=== PATIENT | male | born 1980 | race Caucasian/White ===

== ENCOUNTER 2018-01-30 13:45 | Emergency (ER) | payer SELFPAY ==
[~2018-01-30] VITALS: Ht 180.3 cm; Wt 72.6 kg
--- OUTSIDE RECORDS SUMMARY | 2018-01-30 13:47 | XMS REPORT ---
Author Author [facility] Address Unknown Phone Unavailable Care Team Providers Care Drill Press Hand Name Role Phone DIXON ALCALA Unavailable Unavailable Payers Payer Name Policy Type Policy Number Effective Date Expiration Date Problems This patient has no known problems. Allergies, Adverse Reactions, Alerts Allergy Name Allergy Type Status Severity Reaction(s) Onset Date Inactive Date Treating Clinician Comments cyclobenzaprine HCl DA Active MO 2017-08-20 00:00:00 haloperidol DA Active U 2017-08-20 00:00:00 Medications This patient has no known medications. Results Test Description Test Time Test Comments Text Results Atomic Results Result Comments RAPID DRUG SCREEN, URINE 2016-09-29 13:54:00 BARBITURATE URINE (BEAKER) (test ovir=968) Negative Negative BENZODIAZEPINE SCREEN URINE (BEAKER) (test xppu=794) Negative Negative COCAINE (METAB.) SCREEN (BEAKER) (test dsia=0236) Negative Negative METHADONE SCREEN (BEAKER) (test bvmn=6090) Negative Negative OPIATE SCREEN URINE (BEAKER) (test haru=598) Positive Negative CANNABINOID SCREEN URINE (BEAKER) (test slpi=397) Positive Negative AMPH/METHAMPH SCREEN (BEAKER) (test vxmj=0768) Negative Negative PHENCYCLIDINE SCREEN URINE (BEAKER) (test oucv=620) Negative Negative DRUG CUTOFF CONC.Cocaine 300 ng/mL Cannabinoid 50 ng/mLBenzodiazepine 200 ng/mLBarbiturate 200 ng/mLPh encyclidine 25 ng/mLOpiate 300 ng/mLMethadone 300 ng/mLAmphetamine/ 1000 ng/mL MethamphetamineThis assay provides an unconfirmed qualitative test result for the clinical management of patients in emergency situations. Chain of custody not maintained. Some rvgf-ugl-nynnsod me dications, as well as adulterants, may cause inaccurate results. Clinical correl ation should be applied. A more comprehensive drug screen or confirmation of a d etected drug may be performed upon request.URINALYSIS W/ [id number] 13:42:00* Test Item Value Reference Range Comments COLOR (BEAKER) (test vbdp=452) Light Yellow CLARITY (BEAKER) (test rpjw=284) Clear SPECIFIC GRAVITY UA (BEAKER) (test nedh=778) 1.006 1.001-1.035 PH UA (BEAKER) (test xsnt=620) 8.0 5.0-8.0 PROTEIN UA (BEAKER) (test odld=755) Negative Negative GLUCOSE UA (BEAKER) (test fjrc=737) Negative Negative KETONES UA (BEAKER) (test nrcq=680) Negative Negative BILIRUBIN UA (BEAKER) (test rwtb=068) Negative Negative BLOOD UA (BEAKER) (test hasq=373) Negative Negative NITRITE UA (BEAKER) (test ehzm=758) Negative Negative LEUKOCYTE ESTERASE UA (BEAKER) (test dmqh=737) Negative Negative UROBILINOGEN UA (BEAKER) (test ksej=176) < mg/dL 0.2-1.0 RBC UA (BEAKER) (test nkvp=495) 0 /HPF WBC UA (BEAKER) (test juaw=902) 0 /HPF MUCUS (BEAKER) (test tyvd=1607) Rare SOURCE(BEAKER) (test cgtp=3202) SALICYLATE [id number] 13:03:00* Test Item Value Reference Range Comments SALICYLATE LEVEL (BEAKER) (test ssud=195) < mg/dL 20.0-30.0 ACETAMINOPHEN [id number] 12:57:00* Test Item Value Reference Range Comments ACETAMINOPHEN LEVEL (BEAKER) (test nlae=553) < ug/mL 10.0-30.0 COMPREHENSIVE METABOLIC [id number] 12:56:00* Test Item Value Reference Range Comments TOTAL PROTEIN (BEAKER) (test yvmv=857) 7.8 gm/dL 6.0-8.5 ALBUMIN (BEAKER) (test mdmu=8429) 4.3 g/dL 3.5-5.0 ALKALINE PHOSPHATASE (BEAKER) (test jcii=967) 73 U/L 30-115 BILIRUBIN TOTAL (BEAKER) (test stcy=417) 0.3 mg/dL 0.1-1.3 SODIUM (BEAKER) (test wagl=979) 140 meq/L 135-148 POTASSIUM (BEAKER) (test rsrc=295) 4.1 meq/L 3.5-5.5 CHLORIDE (BEAKER) (test xmoz=390) 104 meq/L 98-106 CO2 (BEAKER) (test ouxb=725) 24 meq/L 20-31 BLOOD UREA NITROGEN (BEAKER) (test dien=199) 8 mg/dL 10-26 CREATININE (BEAKER) (test gcmr=465) 0.99 mg/dL 0.50-1.20 GLUCOSE RANDOM (BEAKER) (test eypr=439) 98 mg/dL 70-110 CALCIUM (BEAKER) (test dspx=490) 10.1 mg/dL 8.5-10.5 AST (SGOT) (BEAKER) (test ozyp=959) 12 U/L 5-40 ALT (SGPT) (BEAKER) (test sscz=364) 8 U/L 6-50 EGFR (BEAKER) (test oise=5172) 85 mL/min/1.73 sq m ESTIMATED GFR IS NOT ACCURATE CREATININE CLEARANCE IN PREDICTING GLOMERULAR FILTRATION RATE. ESTIMATED GFR IS NOT APPLICABLE FOR DIALYSIS PATIENTS. CREATINE KINASE (CK)2016-09-29 12:56:00* Test Item Value Reference Range Comments CREATINE KINASE TOTAL (BEAKER) (test dzry=273) 40 U/L 30-300 [id number] 12:53:00* Test Item Value Reference Range Comments ETHANOL (BEAKER) (test ewdd=129) < mg/dL <=10 CBC W/PLT COUNT & AUTO [id number] 12:24:00* Test Item Value Reference Range Comments WHITE BLOOD CELL COUNT (BEAKER) (test mvdv=941) 5.8 K/ L 4.0-10.0 RED BLOOD CELL COUNT (BEAKER) (test iwvm=623) 5.16 M/ L 4.20-5.80 HEMOGLOBIN (BEAKER) (test kpzf=922) 15.3 GM/DL 13.0-16.8 HEMATOCRIT (BEAKER) (test kkyd=499) 46.0 % 40.0-50.0 MEAN CORPUSCULAR VOLUME (BEAKER) (test tatg=441) 89.3 fL 82.0-98.0 MEAN CORPUSCULAR HEMOGLOBIN (BEAKER) (test kuyw=608) 29.6 pg 27.0-33.0 MEAN CORPUSCULAR HEMOGLOBIN CONC (BEAKER) (test zgzw=530) 33.2 GM/DL 32.0-36.0 RED CELL DISTRIBUTION WIDTH (BEAKER) (test gwhd=213) 13.5 % 12.0-15.0 PLATELET COUNT (BEAKER) (test budk=535) 328 K/CU MM 150-430 MEAN PLATELET VOLUME (BEAKER) (test jife=600) 7.0 fL 6.5-10.5 NUCLEATED RED BLOOD CELLS (BEAKER) (test bheb=114) 0 /100 WBC 0-0 NEUTROPHILS RELATIVE PERCENT (BEAKER) (test fcgp=206) 76 % LYMPHOCYTES RELATIVE PERCENT (BEAKER) (test nhrl=005) 17 % MONOCYTES RELATIVE PERCENT (BEAKER) (test otvk=664) 4 % EOSINOPHILS RELATIVE PERCENT (BEAKER) (test hetk=946) 2 % BASOPHILS RELATIVE PERCENT (BEAKER) (test bats=392) 0 % NEUTROPHILS ABSOLUTE COUNT (BEAKER) (test jowv=653) 4.40 K/ L 1.80-8.00 LYMPHOCYTES ABSOLUTE COUNT (BEAKER) (test qucs=820) 1.00 K/ L 1.48-4.50 MONOCYTES ABSOLUTE COUNT (BEAKER) (test vptp=048) 0.20 K/ L 0.00-1.30 EOSINOPHILS ABSOLUTE COUNT (BEAKER) (test mzfc=275) 0.10 K/ L 0.00-0.50 BASOPHILS ABSOLUTE COUNT (BEAKER) (test swyk=818) 0.00 K/ L 0.00-0.20 TROPONIN [id number] 11:10:00* Test Item Value Reference Range Comments TROPONIN I (BEAKER) (test cgwd=105) 0.01 ng/mL 0.00-0.15 Troponin I (TnI) levels must be interpreted in the context of the presenting sym ptoms and the clinical findings. Elevated TnI levels indicate myocardial damage, but are not specific for ischemic heart disease. Elevated TnI levels are seen in patients with other cardiac conditions (including myocarditis and congestive h eart failure), and slight TnI elevations occur in patients with other conditions , including sepsis, renal failure, acidosis, acute neurological disease, and per sistent tachyarrhythmia.COMPREHENSIVE METABOLIC [id number] 10:56:00* Test Item Value Reference Range Comments TOTAL PROTEIN (BEAKER) (test ndjc=577) 6.9 gm/dL 6.0-8.5 ALBUMIN (BEAKER) (test uwth=5896) 4.1 g/dL 3.5-5.0 ALKALINE PHOSPHATASE (BEAKER) (test ukip=253) 68 U/L 30-115 BILIRUBIN TOTAL (BEAKER) (test fnyi=321) 0.2 mg/dL 0.1-1.3 SODIUM (BEAKER) (test ydlb=521) 144 meq/L 135-148 POTASSIUM (BEAKER) (test yztd=763) 3.4 meq/L 3.5-5.5 CHLORIDE (BEAKER) (test agja=660) 107 meq/L 98-106 CO2 (BEAKER) (test axmf=379) 24 meq/L 20-31 BLOOD UREA NITROGEN (BEAKER) (test qysw=510) 7 mg/dL 10-26 CREATININE (BEAKER) (test xotg=092) 0.83 mg/dL 0.50-1.20 GLUCOSE RANDOM (BEAKER) (test kcms=445) 101 mg/dL 70-110 CALCIUM (BEAKER) (test slxh=270) 9.5 mg/dL 8.5-10.5 AST (SGOT) (BEAKER) (test viip=684) 14 U/L 5-40 ALT (SGPT) (BEAKER) (test tzhk=070) 7 U/L 6-50 EGFR (BEAKER) (test rild=4562) 105 mL/min/1.73 sq m ESTIMATED GFR IS NOT ACCURATE CREATININE CLEARANCE IN PREDICTING GLOMERULAR FILTRATION RATE. ESTIMATED GFR IS NOT APPLICABLE FOR DIALYSIS PATIENTS. SALICYLATE [id number] 10:55:00* Test Item Value Reference Range Comments SALICYLATE LEVEL (BEAKER) (test ifex=887) < mg/dL 20.0-30.0 ACETAMINOPHEN [id number] 10:55:00* Test Item Value Reference Range Comments ACETAMINOPHEN LEVEL (BEAKER) (test khsg=126) < ug/mL 10.0-30.0 [id number] 10:52:00* Test Item Value Reference Range Comments LIPASE (BEAKER) (test iwdz=110) 36 U/L 8-78 [id number] 10:46:00* Test Item Value Reference Range Comments ETHANOL (BEAKER) (test rszj=505) < mg/dL <=10 RAPID DRUG SCREEN, [id number] 10:39:00* Test Item Value Reference Range Comments BARBITURATE URINE (BEAKER) (test sodu=511) Negative Negative BENZODIAZEPINE SCREEN URINE (BEAKER) (test team=538) Positive Negative COCAINE (METAB.) SCREEN (BEAKER) (test cqij=1400) Positive Negative METHADONE SCREEN (BEAKER) (test eios=5578) Negative Negative OPIATE SCREEN URINE (BEAKER) (test wrde=336) Negative Negative CANNABINOID SCREEN URINE (BEAKER) (test rdhy=537) Negative Negative AMPH/METHAMPH SCREEN (BEAKER) (test ahea=8963) Negative Negative PHENCYCLIDINE SCREEN URINE (BEAKER) (test mgex=759) Negative Negative DRUG CUTOFF CONC.Cocaine 300 ng/mL Cannabinoid 50 ng/mLBenzodiazepine 200 ng/mLBarbiturate 200 ng/mLPh encyclidine 25 ng/mLOpiate 300 ng/mLMethadone 300 ng/mLAmphetamine/ 1000 ng/mL MethamphetamineURINALYSIS W/ [id number] 10:24:00* Test Item Value Reference Range Comments COLOR (BEAKER) (test bjpw=736) Colorless CLARITY (BEAKER) (test xzhl=967) Clear SPECIFIC GRAVITY UA (BEAKER) (test undc=649) 1.001 1.001-1.035 PH UA (BEAKER) (test sjnu=968) 7.0 5.0-8.0 PROTEIN UA (BEAKER) (test hdhj=612) Negative Negative GLUCOSE UA (BEAKER) (test mlrc=264) Negative Negative KETONES UA (BEAKER) (test cwld=886) Negative Negative BILIRUBIN UA (BEAKER) (test ljes=907) Negative Negative BLOOD UA (BEAKER) (test czij=271) Negative Negative NITRITE UA (BEAKER) (test ygih=778) Negative Negative LEUKOCYTE ESTERASE UA (BEAKER) (test ifpd=032) Negative Negative UROBILINOGEN UA (BEAKER) (test dfrm=159) < mg/dL 0.2-1.0 RBC UA (BEAKER) (test daka=196) 0 /HPF WBC UA (BEAKER) (test uhxd=869) 0 /HPF SOURCE(BEAKER) (test vblc=9786) CBC W/PLT COUNT & AUTO [id number] 10:22:00* Test Item Value Reference Range Comments WHITE BLOOD CELL COUNT (BEAKER) (test lxcv=511) 6.4 K/ L 4.0-10.0 RED BLOOD CELL COUNT (BEAKER) (test lane=909) 4.28 M/ L 4.20-5.80 HEMOGLOBIN (BEAKER) (test zwqx=716) 12.9 GM/DL 13.0-16.8 HEMATOCRIT (BEAKER) (test gqdn=540) 38.6 % 40.0-50.0 MEAN CORPUSCULAR VOLUME (BEAKER) (test nkdj=901) 90.3 fL 82.0-98.0 MEAN CORPUSCULAR HEMOGLOBIN (BEAKER) (test zysb=579) 30.2 pg 27.0-33.0 MEAN CORPUSCULAR HEMOGLOBIN CONC (BEAKER) (test yhhj=980) 33.5 GM/DL 32.0-36.0 RED CELL DISTRIBUTION WIDTH (BEAKER) (test kfzs=587) 13.4 % 12.0-15.0 PLATELET COUNT (BEAKER) (test qkfg=383) 240 K/CU MM 150-430 MEAN PLATELET VOLUME (BEAKER) (test yale=097) 6.7 fL 6.5-10.5 NUCLEATED RED BLOOD CELLS (BEAKER) (test fprt=039) 0 /100 WBC 0-0 NEUTROPHILS RELATIVE PERCENT (BEAKER) (test vfem=630) 71 % LYMPHOCYTES RELATIVE PERCENT (BEAKER) (test zizq=245) 20 % MONOCYTES RELATIVE PERCENT (BEAKER) (test bafc=255) 7 % EOSINOPHILS RELATIVE PERCENT (BEAKER) (test lxbc=829) 3 % BASOPHILS RELATIVE PERCENT (BEAKER) (test fskd=840) 0 % NEUTROPHILS ABSOLUTE COUNT (BEAKER) (test peog=635) 4.50 K/ L 1.80-8.00 LYMPHOCYTES ABSOLUTE COUNT (BEAKER) (test xwer=829) 1.30 K/ L 1.48-4.50 MONOCYTES ABSOLUTE COUNT (BEAKER) (test sqjq=003) 0.40 K/ L 0.00-1.30 EOSINOPHILS ABSOLUTE COUNT (BEAKER) (test rzqx=051) 0.20 K/ L 0.00-0.50 BASOPHILS ABSOLUTE COUNT (BEAKER) (test wylw=262) 0.00 K/ L 0.00-0.20
--- OUTSIDE RECORDS SUMMARY | 2018-01-30 13:47 | XMS REPORT | Clinical Summary ---
Author Author [facility] Organization [facility] Address Unknown Phone Unavailable Care Team Providers Care Electroformer Name Role Phone Arnulfo Hays MD PCP Allergies Comments Active Allergy Reactions Severity Noted Date Cyclobenzaprine Swelling 09/13/2012 "Swollen lips and locked jaw" Haloperidol 08/04/2013 Medications End Date Status Medication Sig Dispensed Refills Start Date Active HYDROcodone-acetaminophen Take 1 tablet 0 (NORCO 10-325) 10-325 mg by mouth per tablet every 6 (six) hours as needed for Pain. Active Problems Problem Noted Date Alcohol withdrawal seizure, with unspecified complication 09/29/2016 Suicide attempt 03/02/2016 Alcohol withdrawal seizure, uncomplicated 03/02/2016 Alcohol withdrawal 08/04/2013 Alcohol withdrawal 02/24/2013 Social History Date Tobacco Use Types Packs/Day Years Used Former Smoker 1 20 Alcohol Use Drinks/Week oz/Week Comments No Former Sex Assigned at Date Recorded Not on file Industry Job Start Date Occupation Not on file Not on file Not on file Travel End Travel History Travel Start No recent travel history available. Last Filed Vital Signs Not on file Plan of Treatment Not on file Results Not on fileafter 01/29/2017 Insurance Payer Benefit Subscriber ID Type Phone Address Plan / Group MEDICAID MEDICAID xxxxxxxxx [place] [id number] [id number] (Work) Advance Directives For more information, please contact: [facility] [address] [place] [address] Date Inactivated Comments Code Status Date Activated 07/02/2016 11:09 AM Full Code 07/01/2016 2:30 PM This code status was determined by: Patient 03/03/2016 7:05 PM Full Code 03/02/2016 4:19 AM This code status was determined by: Patient 10/06/2013 3:27 PM Full Code 10/04/2013 5:12 PM This code status was determined by: Patient 02/26/2013 6:23 PM All possible means of support, including: cardiac massage, mechanical ventilation, and defibrillation will be used to support life. Code ONE 02/24/2013 2:38 PM
--- OUTSIDE RECORDS SUMMARY | 2018-01-30 13:47 | XMS REPORT | Clinical Summary ---
Author Author [employer] [facility] [employer] Address Unknown Phone Unavailable Care Team Providers [employer] Name Role Phone Asked, No Pcp PCP Unavailable Allergies Active Allergy Reactions Severity Noted Date Comments Haloperidol Other (See Comments) 08/31/2016 JESSICA Current Medications Prescription Sig. Disp. Refills Start End Date Status Date sulfamethoxazole-trimetho Take 1 tablet by mouth 2 20 tablet 0 06/13/19 06/23/19 prim (BACTRIM DS) 800-160 (two) times a day for 10 18 18 mg per tablet days. acetaminophen-codeine Take 1 tablet by mouth 20 tablet 0 06/13/19 06/17/19 (TYLENOL WITH CODEINE #3) every 4 (four) hours as 18 18 300-30 mg per tablet needed for moderate pain for up to 20 doses. Active Problems Problem Noted Date Alcohol withdrawal syndrome (HCC) 12/19/2017 Drug intoxication without complication (HCC) 12/18/2017 Alcohol withdrawal syndrome with complication (HCC) 10/01/2017 Cellulitis of hand 06/08/2017 Dental implant pain 08/31/2016 Encounters Date Type Specialty Care Team Description 12/17/2017 [facility] Eduin Cunningham MD Drug intoxication without - Encounter Gregory Marques MD complication (Primary 12/19/2017 Dx); Alcohol withdrawal syndrome, with delirium; Psychosis, unspecified psychosis type; Alcohol withdrawal syndrome with complication; Cellulitis of hand 10/01/2017 [facility] Frank Eason Alcohol withdrawal - Encounter syndrome with 10/03/2017 Leoncio Gastelum MD complication (Primary [place], Sanjay Gould MD Dx); Drug abuse; Suicidal ideations 06/08/2017 [facility] Federico Foster MD Cellulitis of hand - Encounter Rene Villarreal MD (Primary Dx) 06/12/2017 Diane Patino MD 06/08/2017 Procedure Pass General Internal Medicine after 01/29/2017 Immunizations Name Dates Previously Given Next Due Tdap 06/09/2017 Social History Tobacco Use Types Packs/Day Years Used Date Current Every Day Smoker Cigarettes 2 22 Smokeless Tobacco: Former User Tobacco Cessation: Ready to Quit: No; Counseling Given: No Alcohol Use Drinks/Week oz/Week Comments Yes MCKENZIE DAILY Sex Assigned at Date Recorded Not on file Last Filed Vital Signs Vital Sign Reading Time Taken Blood Pressure 105/70 12/19/2017 7:20 AM CDT Pulse 85 12/19/2017 7:20 AM CDT Temperature 36.3 C (97.3 F) 12/19/2017 7:20 AM CDT Respiratory Rate 14 12/19/2017 7:20 AM CDT Oxygen Saturation 99% 12/19/2017 7:20 AM CDT Inhaled Oxygen - - Concentration Weight 72.6 kg (160 lb) 12/17/2017 10:47 PM CDT Height 180.3 cm (5' 11") 12/17/2017 10:47 PM CDT Body Mass Index 22.32 12/17/2017 10:47 PM CDT Plan of Treatment Health Maintenance Due Date Last Done Comments INFLUENZA VACCINE 11/02/2017 Procedures Procedure Name Priority Date/Time Associated Diagnosis Comments ESTIMATED GFR Routine 12/19/2017 Results for this 3:50 AM CDT procedure are in the results section. BASIC METABOLIC PANEL Routine 12/19/2017 Results for this 3:50 AM CDT procedure are in the results section. HEPATIC FUNCTION PANEL Routine 12/19/2017 Results for this 3:50 AM CDT procedure are in the results section. HC COMPLETE BLD COUNT Routine 12/19/2017 Results for this W/AUTO DIFF 3:50 AM CDT procedure are in the results section. VENOUS BLOOD GAS STAT 12/18/2017 Results for this 6:05 AM CDT procedure are in the results section. LACTIC ACID LEVEL, SEPSIS Timed 12/18/2017 Results for this - NOW AND REPEAT 2X EVERY 5:55 AM CDT procedure are in the [address] ABDOMEN PELVIS W STAT 12/18/2017 Results for this CONTRAST 5:12 AM CDT procedure are in the results section. LACTIC ACID LEVEL, SEPSIS Timed 12/18/2017 Results for this - NOW AND REPEAT 2X EVERY 12:53 AM CDT procedure are in the 3 HOURS results section. SALICYLATE LEVEL STAT 12/17/2017 Results for this 11:48 PM CDT procedure are in the results section. ALCOHOL LEVEL, BLOOD STAT 12/17/2017 Results for this 11:48 PM CDT procedure are in the results section. THYROID STIMULATING STAT 12/17/2017 Results for this HORMONE 11:48 PM CDT procedure are in the results section. T4, FREE STAT 12/17/2017 Results for this 11:48 PM CDT procedure are in the results section. ESTIMATED GFR STAT 12/17/2017 Results for this 11:48 PM CDT procedure are in the results section. ACETAMINOPHEN LEVEL STAT 12/17/2017 Results for this 11:48 PM CDT procedure are in the results section. LIPASE LEVEL STAT 12/17/2017 Results for this 11:48 PM CDT procedure are in the results section. PHOSPHORUS LEVEL STAT 12/17/2017 Results for this 11:48 PM CDT procedure are in the results section. MAGNESIUM LEVEL STAT 12/17/2017 Results for this 11:48 PM CDT procedure are in the results section. CREATINE KINASE, TOTAL STAT 12/17/2017 Results for this (CPK) 11:48 PM CDT procedure are in the results section. COMPREHENSIVE METABOLIC STAT 12/17/2017 Results for this PANEL 11:48 PM CDT procedure are in the results section. HC COMPLETE BLD COUNT STAT 12/17/2017 Results for this W/AUTO DIFF 11:48 PM CDT procedure are in the results section. BLOOD CULTURE, AEROBIC & Routine 12/17/2017 Results for this ANAEROBIC 11:48 PM CDT procedure are in the results section. BLOOD CULTURE, AEROBIC & Routine 12/17/2017 Results for this ANAEROBIC 11:26 PM CDT procedure are in the results section. ZZESTIMATED GFR Routine 10/02/2017 Results for this 5:16 AM CDT procedure are in the results section. COMPREHENSIVE METABOLIC Routine 10/02/2017 Results for this PANEL 5:16 AM CDT procedure are in the results section. HC COMPLETE BLD COUNT Routine 10/02/2017 Results for this W/AUTO DIFF 5:16 AM CDT procedure are in the results section. URINALYSIS, AUTOMATED STAT 10/01/2017 Results for this WITH MICROSCOPY 7:51 PM CDT procedure are in the results section. URINE DRUGS OF ABUSE STAT 10/01/2017 Results for this SCREEN 7:51 PM CDT procedure are in the results section. ZZESTIMATED GFR STAT 10/01/2017 Results for this 6:55 PM CDT procedure are in the results section. COMPREHENSIVE METABOLIC STAT 10/01/2017 Results for this PANEL 6:55 PM CDT procedure are in the results section. ACETAMINOPHEN LEVEL STAT 10/01/2017 Results for this 6:55 PM CDT procedure are in the results section. HC COMPLETE BLD COUNT STAT 10/01/2017 Results for this W/AUTO DIFF 6:55 PM CDT procedure are in the results section. SALICYLATE LEVEL STAT 10/01/2017 Results for this 6:55 PM CDT procedure are in the results section. ALCOHOL LEVEL, BLOOD STAT 10/01/2017 Results for this 6:55 PM CDT procedure are in the results section. [place] CRITICAL C[facility], E/M Routine 10/01/2017 Results for this 30-74 MINUTES 6:41 PM CDT procedure are in the results section. ZZESTIMATED GFR Routine 06/11/2017 Results for this 6:33 AM [employer] procedure are in the results section. CREATININE LEVEL Routine 06/11/2017 Results for this 6:33 AM [employer] procedure are in the results section. VANCOMYCIN LEVEL, TROUGH Timed 06/10/2017 Results for this 11:46 AM [employer] procedure are in the results section. ZZESTIMATED GFR Routine 06/10/2017 Results for this 4:40 AM [employer] procedure are in the results section. BASIC METABOLIC PANEL Routine 06/10/2017 Results for this 4:40 AM [employer] procedure are in the results section. CBC WITH PLATELET AND Routine 06/10/2017 Results for this DIFFERENTIAL 4:40 AM [employer] procedure are in the results section. MRI UPPER EXTREMITY W WO Routine 06/09/2017 Results for this CONTRAST RIGHT 10:28 AM [employer] procedure are in the results section. ZZESTIMATED GFR Routine 06/09/2017 Results for this 5:00 AM [employer] procedure are in the results section. BASIC METABOLIC PANEL Routine 06/09/2017 Results for this 5:00 AM [employer] procedure are in the results section. CBC WITH PLATELET AND Routine 06/09/2017 Results for this DIFFERENTIAL 5:00 AM [employer] procedure are in the results section. LACTIC ACID LEVEL, SEPSIS Timed 06/09/2017 Results for this - NOW AND REPEAT 2X EVERY 5:00 AM [employer] procedure are in the 3 HOURS results section. URINE DRUGS OF ABUSE Routine 06/09/2017 Results for this SCREEN 12:58 AM [employer] procedure are in the results section. HC COMPLETE BLD COUNT STAT 06/08/2017 Results for this W/AUTO DIFF 2:30 PM [employer] procedure are in the results section. LACTIC ACID LEVEL, SEPSIS Timed 06/08/2017 Results for this - NOW AND REPEAT 2X EVERY 2:30 PM [employer] procedure are in the 3 HOURS results section. BLOOD CULTURE, AEROBIC & Routine 06/08/2017 Results for this ANAEROBIC 1:19 PM [employer] procedure are in the results section. ZZESTIMATED GFR STAT 06/08/2017 Results for this 12:10 PM [employer] procedure are in the results section. LACTIC ACID LEVEL, SEPSIS STAT 06/08/2017 Results for this - NOW AND REPEAT 2X EVERY 12:10 PM [employer] procedure are in the 3 HOURS results section. BASIC METABOLIC PANEL STAT 06/08/2017 Results for this 12:10 PM [employer] procedure are in the results section. BLOOD CULTURE, AEROBIC & Routine 06/08/2017 Results for this ANAEROBIC 11:35 AM [employer] procedure are in the results section. US DUPLEX VENOUS UPPER STAT 06/08/2017 Results for this EXTREMITY RIGHT 11:30 AM [employer] procedure are in the results section. XR WRIST 3+ VW RIGHT STAT 06/08/2017 Results for this 11:00 AM [employer] procedure are in the results section. after 01/29/2017 Results * Estimated GFR (12/19/2017 3:50 AM) Only the most recent of 2 results within the time period is included. Estimated GFR >=90 mL/min/1.73 m2 [facility] DEPARTMENT OF Comment: PATHOLOGY AND [employer] GENOMIC MEDICINE rpretation G1 >=90 Normal or high G2 60-89Mildly decreased [id number] Mildly to moderately decreased [id number] Moderately to severely decreased G4 15-29Severely decreased G5 <15Kidney failure The eGFR was calculated using the Chronic Kidney Disease Epidemiology Collaboration (CKD-EPI) equation. Interpretation is based on recommendations of the National Kidney Foundation-Kidney Disease Outcomes Quality Initiative (NKF-KDOQI) published in 2014. Specimen Plasma specimen Performing Organization Address City/State/Zipcode Phone Number [place] [phone] [facility] [address] [place] [address] PATHOLOGY AND GENOMIC MEDICINE * CBC with platelet and differential (12/19/2017 3:50 AM) Only the most recent of 7 results within the time period is included. WBC 6.4 4.5 - 11.0 k/uL [facility] DEPARTMENT OF PATHOLOGY AND GENOMIC MEDICINE RBC 4.47 4.40 - 6.00 M/uL [facility] DEPARTMENT OF PATHOLOGY AND GENOMIC MEDICINE HGB 12.7 (L) 14.0 - 18.0 g/dL [facility] DEPARTMENT OF PATHOLOGY AND GENOMIC MEDICINE HCT 39.0 (L) 41.0 - 51.0 % [facility] DEPARTMENT OF PATHOLOGY AND GENOMIC MEDICINE MCV 87.2 82.0 - 100.0 fL [facility] DEPARTMENT OF PATHOLOGY AND GENOMIC MEDICINE MCH 28.4 27.0 - 34.0 pg [facility] DEPARTMENT OF PATHOLOGY AND GENOMIC MEDICINE MCHC 32.6 31.0 - 37.0 g/dL [facility] DEPARTMENT OF PATHOLOGY AND GENOMIC MEDICINE RDW - SD 41.1 37.0 - 55.0 fL [facility] DEPARTMENT OF PATHOLOGY AND GENOMIC MEDICINE MPV 9.1 8.8 - 13.2 fL [facility] DEPARTMENT OF PATHOLOGY AND GENOMIC MEDICINE Platelet count 228 150 - 400 K/uL [facility] DEPARTMENT OF PATHOLOGY AND GENOMIC MEDICINE Nucleated RBC 0.00 /100 WBC [facility] DEPARTMENT OF PATHOLOGY AND GENOMIC MEDICINE Neutrophils 70.8 (H) 39.0 - 69.0 % [facility] DEPARTMENT OF PATHOLOGY AND GENOMIC MEDICINE Lymphocytes 16.5 (L) 25.0 - 45.0 % [facility] DEPARTMENT OF PATHOLOGY AND GENOMIC MEDICINE Monocytes 7.5 0.0 - 10.0 % [facility] DEPARTMENT OF PATHOLOGY AND GENOMIC MEDICINE Eosinophils 4.7 0.0 - 5.0 % [facility] DEPARTMENT OF PATHOLOGY AND GENOMIC MEDICINE Basophils 0.3 0.0 - 1.0 % [facility] DEPARTMENT OF PATHOLOGY AND GENOMIC MEDICINE Immature granulocytes 0.2Comment: "Immature 0.0 - 1.0 % [facility] DEPARTMENT OF granulocytes" (promyelocytes, PATHOLOGY AND myelocytes, metamyelocytes) [facility] Specimen Blood Performing Organization Address City/State/Zipcode Phone Number [facility] [address] [facility] [place] [address] PATHOLOGY AND [employer] MEDICINE * Hepatic function panel (12/19/2017 3:50 AM) Albumin 3.9 3.5 - 5.0 g/dL [facility] DEPARTMENT OF PATHOLOGY AND GENOMIC MEDICINE Total bilirubin 0.3 0.2 - 1.2 mg/dL [facility] DEPARTMENT OF PATHOLOGY AND GENOMIC MEDICINE Bilirubin direct <0.2 0.0 - 0.4 mg/dL [facility] DEPARTMENT OF PATHOLOGY AND GENOMIC MEDICINE Alkaline phosphatase 73 30 - 115 U/L [facility] DEPARTMENT OF PATHOLOGY AND GENOMIC MEDICINE Protein 6.6 6.3 - 8.2 g/dL [facility] DEPARTMENT OF PATHOLOGY AND GENOMIC MEDICINE ALT 8 (L) 10 - 55 U/L [facility] DEPARTMENT OF PATHOLOGY AND GENOMIC MEDICINE AST 17 15 - 46 U/L [facility] DEPARTMENT OF PATHOLOGY AND GENOMIC MEDICINE Specimen Plasma specimen Performing Organization Address [facility]/[place] [address] PATHOLOGY AND [employer] * Basic metabolic panel (12/19/2017 3:50 AM) Only the most recent of 4 results within the time period is included. Sodium 139 135 - 148 mEq/L [facility] DEPARTMENT OF PATHOLOGY AND GENOMIC MEDICINE Potassium 4.2 3.5 - 5.0 mEq/L [facility] DEPARTMENT OF PATHOLOGY AND GENOMIC MEDICINE Chloride 102 99 - 109 mEq/L [facility] DEPARTMENT OF PATHOLOGY AND GENOMIC MEDICINE CO2 27 24 - 31 mEq/L [facility] OF PATHOLOGY AND GENOMIC MEDICINE Anion gap 10@ANIO 7 - 15 mEq/L [facility] DEPARTMENT OF PATHOLOGY AND GENOMIC MEDICINE BUN 9 8 - 24 mg/dL [facility] DEPARTMENT OF PATHOLOGY AND GENOMIC MEDICINE Creatinine 1.00 0.70 - 1.20 mg/dL [facility] DEPARTMENT PATHOLOGY AND GENOMIC MEDICINE Glucose 149 (H) 65 - 99 mg/dL [facility] DEPARTMENT OF PATHOLOGY AND GENOMIC MEDICINE Calcium 9.0 8.6 - 10.6 mg/dL [facility] PATHOLOGY AND GENOMIC MEDICINE Specimen Plasma specimen Performing Organization Address [facility]/[place] [address] PATHOLOGY [facility] [employer] * Venous blood gas (12/18/2017 6:05 AM) pH, venous 7.33 7.32 - 7.42 [facility] DEPARTMENT OF PATHOLOGY AND GENOMIC MEDICINE pCO2, venous 55 (H) 45 - 51 mmHg [facility] DEPARTMENT OF PATHOLOGY AND GENOMIC MEDICINE pO2, venous 32 25 - 40 mmHg [facility] DEPARTMENT OF PATHOLOGY AND GENOMIC MEDICINE Base excess, venous 2 -2 - 2 mEq/L [facility] DEPARTMENT OF PATHOLOGY AND GENOMIC MEDICINE O2 saturation, venous 53 40 - 70 % [facility] DEPARTMENT OF PATHOLOGY AND GENOMIC MEDICINE Bicarbonate, venous 28.0 21.0 - 28.0 [facility] DEPARTMENT OF PATHOLOGY AND GENOMIC MEDICINE Specimen Blood Performing Organization Address City/[facility]/Zipcode Phone Number [facility] [place] [place] [address] [facility]. [address] [place] [address] PATHOLOGY AND GENOMIC MEDICINE * Lactic acid level, SEPSIS - Now and repeat 2x every 3 hours (12/18/2017 5:55 AM) Only the most recent of 5 results within the time period is included. Lactic acid 0.6 0.5 - 2.2 mmol/L [facility] DEPARTMENT OF PATHOLOGY AND GENOMIC MEDICINE Specimen Blood Performing Organization Address [facility]/Zipcode Phone Number [address] [place] [address] PATHOLOGY AND GENOMIC MEDICINE * CT Abdomen Pelvis W Contrast (12/18/2017 5:12 AM) Narrative Performed At Examination:CT ABDOMEN PELVIS W CONTRAST HM RADIANT Clinical History: epigastric pain Comparison: None. Findings: CT scans are performed using radiation dose reduction techniques.Technical factors are evaluated and adjusted to ensure appropriate moderation of exposure.Automated dose management technology is applied to adjust radiation exposure while achieving a diagnostic quality image. CT scan of the abdomen and pelvis was performed after intravenous contrast. The liver, spleen, pancreas, and adrenal glands are unremarkable. Gallbladder is contracted but unremarkable. There is a left intrarenal calculus measuring 2 mm. Right renal cyst is noted measuring 3.6 cm. No hydronephrosis is seen. Nonspecific but nondilated fluid-filled small bowel are noted. No bowel thickening or fat stranding is seen. Moderate fecal material seen throughout the colon. No bowel dilatation is seen. No free air or fluid is seen. Urinary bladder is unremarkable. The visualized lung bases show some mild right base atelectasis. IMPRESSION: 1. Moderate fecal material throughout the colon but no evidence for bowel obstruction. 2. Nonspecific but nondilated fluid-filled small bowel may be related to adynamic ileus. 3. Left nonobstructing intrarenal calculus. [facility]-[id number] Procedure Note Hm Interface, Radiology Results Incoming - 12/18/2017 5:42 AM CDT Examination: CT ABDOMEN PELVIS W CONTRAST Clinical History: epigastric pain Comparison: None. Findings: CT scans are performed using radiation dose reduction techniques. Technical factors are evaluated and adjusted to ensure appropriate moderation of exposure. Automated dose management technology is applied to adjust radiation exposure while achieving a diagnostic quality image. CT scan of the abdomen and pelvis was performed after intravenous contrast. The liver, spleen, pancreas, and adrenal glands are unremarkable. Gallbladder is contracted but unremarkable. There is a left intrarenal calculus measuring 2 mm. Right renal cyst is noted measuring 3.6 cm. No hydronephrosis is seen. Nonspecific but nondilated fluid-filled small bowel are noted. No bowel thickening or fat stranding is seen. Moderate fecal material seen throughout the colon. No bowel dilatation is seen. No free air or fluid is seen. Urinary bladder is unremarkable. The visualized lung bases show some mild right base atelectasis. IMPRESSION: 1. Moderate fecal material throughout the colon but no evidence for bowel obstruction. 2. Nonspecific but nondilated fluid-filled small bowel may be related to adynamic ileus. 3. Left nonobstructing intrarenal calculus. [facility]-[id number] Performing Organization Address [facility]/[place] [address] * Blood culture, aerobic & anaerobic (12/17/2017 11:48 PM) Only the most recent of 4 results within the time period is included. Blood culture isolate No growth after 5 days of [facility] DEPARTMENT OF incubation. PATHOLOGY AND Comment: GENOMIC MEDICINE Specimen Information Specimen Source: Blood Specimen Site: Upper arm, left Specimen Blood - Upper arm, left Performing Organization Address [facility]/[employer] Phone Number [facility] DEPARTMENT OF [address] [place] [address] PATHOLOGY AND GENOMIC MEDICINE * Thyroid stimulating hormone (12/17/2017 11:48 PM) TSH 1.79 0.55 - 4.78 uIU/mL [facility] DEPARTMENT OF PATHOLOGY AND [facility] MEDICINE Specimen Plasma specimen Performing Organization Address [facility]/[place] Phone Number [address] [place] [address] PATHOLOGY AND GENOMIC MEDICINE * T4, free (12/17/2017 11:48 PM) T4, free 1.4 0.8 - 1.8 ng/dL [facility] DEPARTMENT OF PATHOLOGY AND GENOMIC MEDICINE Specimen Plasma specimen Performing Organization Address [facility]/[place] Phone Number [address] [place] [address] PATHOLOGY AND GENOMIC MEDICINE * Phosphorus level (12/17/2017 11:48 PM) Phosphorus 2.6 2.5 - 4.8 mg/dL [facility] DEPARTMENT OF PATHOLOGY AND GENOMIC MEDICINE Specimen Plasma specimen Performing Organization Address [facility] [place] [address] PATHOLOGY AND GENOMIC MEDICINE * Magnesium level (12/17/2017 11:48 PM) Magnesium 2.1 1.7 - 2.4 mg/dL [facility] DEPARTMENT OF PATHOLOGY AND GENOMIC MEDICINE Specimen Plasma specimen Performing Organization Address [facility] [place] [address] PATHOLOGY AND GENOMIC MEDICINE * Lipase level (12/17/2017 11:48 PM) Lipase 11 (L) 23 - 300 U/L [facility] OF PATHOLOGY AND GENOMIC MEDICINE Specimen Plasma specimen Performing Organization [facility] [place] [address] PATHOLOGY AND GENOMIC MEDICINE * Creatine kinase, total (CPK) (12/17/2017 11:48 PM) Creatine kinase 203 (H) 35 - 200 U/L [facility] OF PATHOLOGY AND GENOMIC MEDICINE Specimen Plasma specimen Performing Organization [facility] [place] [address] PATHOLOGY AND GENOMIC MEDICINE * Alcohol level, blood (12/17/2017 11:48 PM) Only the most recent of 2 results within the time period is included. Alcohol None Detected mg/dl [facility] DEPARTMENT OF PATHOLOGY AND GENOMIC MEDICINE Alcohol percent None Detected 0.00 - 0.08 % [facility] DEPARTMENT OF Comment: PATHOLOGY AND Normal GENOMIC MEDICINE None Detected Legal Intoxication in [place]80 mg/dL (0.08%) - Whole Blood Toxic Concentration 200 mg/dL (0.2%) Potentially Fatal3 50 - 500 mg/dL (0.35 - 0.5%) Specimen Plasma specimen Performing Organization [facility] [place] [address] PATHOLOGY AND GENOMIC MEDICINE * Acetaminophen level (12/17/2017 11:48 PM) Only the most recent of 2 results within the time period is included. Acetaminophen level <15.0 10.0 - 30.0 ug/mL [facility] DEPARTMENT OF PATHOLOGY AND GENOMIC MEDICINE Specimen Plasma specimen Performing Organization [facility]/[employer] Phone Number [address] [place] [address] PATHOLOGY AND GENOMIC MEDICINE * Salicylate level (12/17/2017 11:48 PM) Only the most recent of 2 results within the time period is included. Salicylate <0.3 (L) 5.0 - 30.0 mg/dL [facility] DEPARTMENT OF Comment: PATHOLOGY AND Therapeutic Range: GENOMIC MEDICINE 5 - 30 mg/dL Specimen Plasma specimen Performing Organization Address City/[facility]/[employer] Phone Number [address] [place] [address] PATHOLOGY AND GENOMIC MEDICINE * Comprehensive metabolic panel (12/17/2017 11:48 PM) Only the most recent of 3 results within the time period is included. Sodium 137 135 - 148 mEq/L [facility] DEPARTMENT OF PATHOLOGY AND GENOMIC MEDICINE Potassium 4.0 3.5 - 5.0 mEq/L [facility] DEPARTMENT OF PATHOLOGY AND GENOMIC MEDICINE Chloride 96 (L) 99 - 109 mEq/L [facility] DEPARTMENT OF PATHOLOGY AND GENOMIC MEDICINE CO2 27 24 - 31 mEq/L [facility] DEPARTMENT OF PATHOLOGY AND GENOMIC MEDICINE Anion gap 14@ANIO 7 - 15 mEq/L [facility] DEPARTMENT OF PATHOLOGY AND GENOMIC MEDICINE BUN 15 8 - 24 mg/dL [facility] DEPARTMENT OF PATHOLOGY AND GENOMIC MEDICINE Creatinine 1.10 0.70 - 1.20 mg/dL [facility] DEPARTMENT OF PATHOLOGY AND GENOMIC MEDICINE Glucose 88 65 - 99 mg/dL [facility] DEPARTMENT OF PATHOLOGY AND GENOMIC MEDICINE Calcium 9.3 8.6 - 10.6 mg/dL [facility] DEPARTMENT OF PATHOLOGY AND GENOMIC MEDICINE Protein 7.3 6.3 - 8.2 g/dL [facility] DEPARTMENT OF PATHOLOGY AND GENOMIC MEDICINE Albumin 4.4 3.5 - 5.0 g/dL [facility] DEPARTMENT OF PATHOLOGY AND GENOMIC MEDICINE A/G ratio 1.52 0.70 - 3.80 [facility] DEPARTMENT OF PATHOLOGY AND GENOMIC MEDICINE Alkaline phosphatase 82 30 - 115 U/L [facility] DEPARTMENT OF PATHOLOGY AND GENOMIC MEDICINE AST 20 15 - 46 U/L [facility] DEPARTMENT OF PATHOLOGY AND GENOMIC MEDICINE ALT 10 10 - 55 U/L [facility] DEPARTMENT OF PATHOLOGY AND GENOMIC MEDICINE Total bilirubin 0.5 0.2 - 1.2 mg/dL [facility] DEPARTMENT OF PATHOLOGY AND GENOMIC MEDICINE Specimen Plasma specimen Performing Organization Address City/[facility]/[place] Phone Number [address] [place] [address] PATHOLOGY AND [place] MEDICINE * Estimated GFR (10/02/2017 5:16 AM) Only the most recent of 6 results within the time period is included. GFR Non Af Amer >90 mL/min/1.73 m2 [facility] PATHOLOGY AND GENOMIC MEDICINE GFR Af Amer >90 mL/min/1.73 m2 [facility] DEPARTMENT OF Comment: PATHOLOGY AND Chronic kidney disease: <60 GENOMIC MEDICINE mL/min/1.73m2 Kidney failure: <15 mL/min/1.73m2 The estimated GFR is calculated from the IDMS-traceable Modification of Diet in Renal Disease Equation. The accuracy of the calculation is poor when the creatinine is normal. Calculated values >90 mL/min/1.73m2 are not reported. This equation has not been validated in children (<18 years), women, the elderly (>70 years), or ethnic groups other than Caucasians and Americans. Specimen Plasma specimen Performing Organization Address City/State/Zipcode Phone Number [address] [place] [address] PATHOLOGY [facility] [place] * Urine drugs of abuse screen (10/01/2017 7:51 PM) Only the most recent of 2 results within the time period is included. Amphetamine screen, urine Negative [facility] DEPARTMENT OF PATHOLOGY AND GENOMIC MEDICINE Barbiturate screen, urine Negative [facility] DEPARTMENT OF PATHOLOGY AND GENOMIC MEDICINE Benzodiazepine screen, Negative [facility] DEPARTMENT OF urine PATHOLOGY AND GENOMIC MEDICINE Cannabinoid screen, urine Positive (A) [facility] DEPARTMENT OF PATHOLOGY AND GENOMIC MEDICINE Cocaine screen, urine Positive (A) [facility] DEPARTMENT OF PATHOLOGY AND GENOMIC MEDICINE Methadone metabolite Negative [facility] DEPARTMENT OF (EDDP), urine PATHOLOGY AND GENOMIC MEDICINE Opiates screen, urine Positive (A) [facility] DEPARTMENT OF PATHOLOGY AND GENOMIC MEDICINE Oxycodone screen, urine Negative [facility] DEPARTMENT OF PATHOLOGY AND GENOMIC MEDICINE Phencyclidine screen, Negative [facility] DEPARTMENT OF urine PATHOLOGY AND GENOMIC MEDICINE Tricyclic screen, urine Negative [facility] DEPARTMENT OF Comment: PATHOLOGY AND Drug screen minimum GENOMIC MEDICINE concentration of detectability Amphetamines 1000 ng/mL Barbiturates 200 ng/mL Benzodiazepines 300 ng/mL Cocaine 300 ng/mL Methadone 300 ng/mL Opiates 300 ng/mL Oxycodone 300 ng/mL Phencyclidine 25 ng/mL Cannabinoids 50 ng/mL Tricyclics 1000 ng/mL Negative test results indicates presumptive evidence of lack of clinically significant drug concentration in this urine specimen. Positive test results are presumptive evidence of clinically significant drug concentration in this urine specimen. Testing performed for medical purposes only. Specimen Urine Performing Organization Address City/[facility]/Zipcode Phone Number [address] [place] [address] PATHOLOGY AND GENOMIC MEDICINE * Urinalysis, automated with microscopy (10/01/2017 7:51 PM) Color, UA Yellow YELLOW [facility] DEPARTMENT OF PATHOLOGY AND GENOMIC MEDICINE Appearance, UA Clear Clear [facility] DEPARTMENT OF PATHOLOGY AND GENOMIC MEDICINE Specific gravity, UA 1.017 1.005 - 1.030 [facility] DEPARTMENT OF PATHOLOGY AND GENOMIC MEDICINE pH, UA 6.0 5.0 - 8.0 [facility] DEPARTMENT OF PATHOLOGY AND GENOMIC MEDICINE Protein, UA Negative Negative [facility] DEPARTMENT OF PATHOLOGY AND GENOMIC MEDICINE Glucose, UA Negative Negative [facility] DEPARTMENT OF PATHOLOGY AND GENOMIC MEDICINE Ketones, UA Negative Negative [facility] DEPARTMENT OF PATHOLOGY AND GENOMIC MEDICINE Bilirubin, UA Negative Negative [facility] DEPARTMENT OF PATHOLOGY AND GENOMIC MEDICINE Blood, UA Negative Negative [facility] DEPARTMENT OF PATHOLOGY AND GENOMIC MEDICINE Nitrite, UA Negative NEGATIVE [facility] DEPARTMENT OF PATHOLOGY AND GENOMIC MEDICINE Urobilinogen, UA 2.0 <2.0 E.U./dL [facility] DEPARTMENT OF PATHOLOGY AND GENOMIC MEDICINE Leukocyte esterase, UA Negative Negative [facility] DEPARTMENT OF PATHOLOGY AND GENOMIC MEDICINE Epithelial cells, UA <1 0 - 15 /HPF [facility] DEPARTMENT OF PATHOLOGY AND GENOMIC MEDICINE WBC, UA 3 0 - 5 /Hpf [facility] DEPARTMENT OF PATHOLOGY AND GENOMIC MEDICINE RBC, UA 3 0 - 5 /HPF [facility] DEPARTMENT OF PATHOLOGY AND GENOMIC MEDICINE Bacteria, UA None seen None seen [facility] DEPARTMENT OF PATHOLOGY AND GENOMIC MEDICINE Yeast, UA None seen None Seen [facility] DEPARTMENT OF PATHOLOGY AND GENOMIC MEDICINE Yeast with pseudohyphae, None seen [facility] DEPARTMENT OF PATHOLOGY AND GENOMIC MEDICINE Specimen Urine Performing Organization Address City/[facility]/Zipcode Phone Number [address] [place] [id number] PATHOLOGY AND GENOMIC MEDICINE * CRITICAL CARE (10/01/2017 6:41 PM) Narrative Performed At Frank Eason MD 10/02/20173:35 AM Critical Care Performed by: FRANK EASON Authorized by: FRANK EASON Critical care provider statement: Critical care time (minutes):40 Critical care time was exclusive of:Separately billable procedures and treating other patients Critical care was necessary to treat or prevent imminent or life-threatening deterioration of the following conditions:Toxidrome Critical care was time spent personally by me on the following activities:Development of treatment plan with patient or surrogate, discussions with consultants, discussions with primary provider, evaluation of patient's response to treatment, examination of patient, obtaining history from patient or surrogate, ordering and performing treatments and interventions, ordering and review of laboratory studies and re-evaluation of patient's condition * Creatinine level (06/11/2017 6:33 AM) Creatinine 0.8 0.7 - 1.2 mg/dL [facility] DEPARTMENT OF PATHOLOGY AND GENOMIC MEDICINE Specimen Plasma specimen Performing Organization Address [facility]/[place] Phone Number [place] [address], [facility] [address] [place] [address] PATHOLOGY AND GENOMIC MEDICINE * Vancomycin level, trough (06/10/2017 11:46 AM) Vancomycin, trough 8.3 (L) 10.0 - 20.0 ug/mL [facility] DEPARTMENT OF Comment: PATHOLOGY AND Therapeutic Ranges: GENOMIC MEDICINE Peak 30.0 - 40.0 ug/mL Krbfhm20.0 - 20.0 ug/mL Specimen Serum Performing Organization Address City/[facility] Phone Number [place] [address], [address] [place] [address] PATHOLOGY AND GENOMIC MEDICINE * MRI Upper Extremity W Wo Contrast Right (06/09/2017 10:28 AM) Narrative Performed At [facility] EXAMINATION:MRI UPPER EXTREMITY W WO CONTRAST RIGHT CLINICAL HISTORY:right hand edemaeval for nec fasc TECHNIQUE: Multiplanar, multisequence MR imaging examination ofright hand , prior to and following gadolinium IV contrast.. COMPARISON:Right wrist x-ray, 06/08/2017 IMPRESSION: 1.Moderate subcutaneous edema dorsally in the hand indicative of cellulitis given the clinical history. There is associated enhancement. No discrete abscess is identified. No evidence of nonenhancement indicate necrosis. 2.The visualized muscle groups are well-maintained with no significant myositis. 3.Marrow signals are well-maintained, and there is no osteolysis to indicate osteomyelitis, and there is no abnormal marrow enhancement or signal to indicate osteitis. 4.A tiny radiocarpal joint effusion and also a small effusion along the lateral side of the intercarpal row, nonspecific. The subjacent marrow signals demonstrate only mild degenerative change. Mild synovitis posteriorly outlined by the joint effusion. 5.Mild marrow edema in the hook of the hamate compatible with a stress response or contusion. The adjacent soft tissues are well-maintained, which argues strongly against infection. 6. SUMMARY: Cellulitis dorsally, though without evidence of abscess or necrosis. [facility]-[id number] Procedure Note Interface, Radiology Results Incoming - 06/09/2017 10:50 AM [employer] EXAMINATION: MRI UPPER EXTREMITY W WO CONTRAST RIGHT CLINICAL HISTORY: right hand edema eval for nec fasc TECHNIQUE: Multiplanar, multisequence MR imaging examination of right hand , prior to and following gadolinium IV contrast.. COMPARISON: Right wrist x-ray, 06/08/2017 IMPRESSION: 1. Moderate subcutaneous edema dorsally in the hand indicative of cellulitis given the clinical history. There is associated enhancement. No discrete abscess is identified. No evidence of nonenhancement indicate necrosis. 2. The visualized muscle groups are well-maintained with no significant myositis. 3. Marrow signals are well-maintained, and there is no osteolysis to indicate osteomyelitis, and there is no abnormal marrow enhancement or signal to indicate osteitis. 4. A tiny radiocarpal joint effusion and also a small effusion along the lateral side of the intercarpal row, nonspecific. The subjacent marrow signals demonstrate only mild degenerative change. Mild synovitis posteriorly outlined by the joint effusion. 5. Mild marrow edema in the hook of the hamate compatible with a stress response or contusion. The adjacent soft tissues are well-maintained, which argues strongly against infection. 6. SUMMARY: Cellulitis dorsally, though without evidence of abscess or necrosis. [facility]-[id number] Performing Organization Address City/State/Zipcode Phone Number [facility] [address] [place] [address] * PV Duplex Venous Upper Extremity (06/08/2017 11:30 AM) Narrative Performed At EXAMINATION: NATASHA US DUPLEX VENOUS UPPER EXTREMITY RIGHT CLINICAL HISTORY: rednessswellingpainR wrist arm COMPARISON: None. TECHNIQUE: Grayscale, color Doppler, and spectral waveform analysis of the right upper extremity deep venous system was performed. FINDINGS: The right internal jugular vein demonstrates normal flow and compressibility. The right subclavian, axillary, brachial, basilic, cephalic, and forearm veins reveal no evidence of thrombosis. The veins demonstrate normal Doppler flow and normal compressibility. Cursory evaluation of the left subclavian vein demonstrates normal waveform. IMPRESSION: Normal right upper extremity venous Doppler examination. No sonographic evidence of deep venous thrombosis of the right upper extremity. [id number] Procedure Note Interface, Radiology Results Incoming - 06/08/2017 11:50 AM [employer] EXAMINATION: US DUPLEX VENOUS UPPER EXTREMITY RIGHT CLINICAL HISTORY: redness swelling pain R wrist arm COMPARISON: None. TECHNIQUE: Grayscale, color Doppler, and spectral waveform analysis of the right upper extremity deep venous system was performed. FINDINGS: The right internal jugular vein demonstrates normal flow and compressibility. The right subclavian, axillary, brachial, basilic, cephalic, and forearm veins reveal no evidence of thrombosis. The veins demonstrate normal Doppler flow and normal compressibility. Cursory evaluation of the left subclavian vein demonstrates normal waveform. IMPRESSION: Normal right upper extremity venous Doppler examination. No sonographic evidence of deep venous thrombosis of the right upper extremity. [facility]-[id number] Performing Organization Address City/State/Zipcode Phone Number [facility] [address] [place] [address] * XR Wrist 3+ Vw Right (06/08/2017 11:00 AM) Narrative Performed At Procedure:XR WRIST 3VW RIGHT [facility] REFERRING PHYSICIAN: FEDERICO FONTANA HISTORY:swellingredness COMPARISON: None FINDINGS: No evidence of fracture or dislocation is seen. The joint spaces are maintained. No osteolytic or osteoblastic lesion is identify. Soft tissue swelling along the dorsal aspect of the wrist is seen. Regional soft tissue is otherwise unremarkable. No radiopaque foreign body is seen. XR WRIST 3VW RIGHTacquired. IMPRESSION: Mild soft tissue swelling along the dorsal aspect of the right wrist with no radiographic evidence of radiopaque foreign body, acute fracture or dislocation. [facility]-[id number] Procedure Note Interface, Radiology Results Incoming - 06/08/2017 11:29 AM [employer] Procedure:XR WRIST 3 VW RIGHT REFERRING PHYSICIAN: FEDERICO FONTANA HISTORY: swelling redness COMPARISON: None FINDINGS: No evidence of fracture or dislocation is seen. The joint spaces are maintained. No osteolytic or osteoblastic lesion is identify. Soft tissue swelling along the dorsal aspect of the wrist is seen. Regional soft tissue is otherwise unremarkable. No radiopaque foreign body is seen. XR WRIST 3 VW RIGHT acquired. IMPRESSION: Mild soft tissue swelling along the dorsal aspect of the right wrist with no radiographic evidence of radiopaque foreign body, acute fracture or dislocation. [facility]-[id number] Performing Organization Address City/State/Zipcode Phone Number [facility] [address] [place] [address] after 01/29/2017
[2018-01-30 15:31] LABS: CLARITY,URINE SL CLOUDY (CLEAR); COLOR,URINE YELLOW (YELLOW)
[2018-01-30 15:35] LABS: BILIRUBIN,URINE NEGATIVE (NEGATIVE); KETONES,URINE NEGATIVE (NEGATIVE); LEUKOCYTE ESTERASE ,URINE TRACE (NEGATIVE); NITRITE,URINE NEGATIVE (NEGATIVE); PROTEIN,URINE DIPSTICK NEGATIVE (NEGATIVE); URINE UROBILINOGEN 1 mg/dL (0.2 - 1)
[2018-01-30 15:43] LABS: AMORPHOUS SEDIMENT,URINE MODERATE (FEW); EPITHELIAL CELLS,URINE FEW /LPF; WBC,URINE (MAN) 0-5 /HPF (0-5)
== END 2018-01-30 17:50 | disposition left against medical advice (07) ==
LOC: ER 13:45
DX: R10.9 Unspecified abdominal pain (principal)
CPT/HCPCS: 81001; 99282